=== PATIENT | female | born 1975 | race Caucasian/White ===

== ENCOUNTER 2017-09-11 08:29 | Day surgery (SDC) | payer OTHER ==
[2017-09-11] MEDS ORDERED: Propofol 10 mg/ml Inj (20 ML) ONE (13:38)
[2017-09-11] MEDS ORDERED: Lidocaine Hydrochloride 5 ML INJ ONE (13:38)
[2017-09-11 14:24] VITALS: TEMP 97.8
[2017-09-11 14:26] VITALS: O2SAT 100
[2017-09-11 15:30] VITALS: BP 103/64; PULSE 65; RESP 18
== END 2017-09-11 15:20 | disposition home or self-care (01) ==
LOC: C.ENDO 08:29
PROVIDERS: ATTEND Internal Medicine
DX: K29.80 Duodenitis without bleeding (principal); K29.50 Unspecified chronic gastritis without bleeding; B96.81 Helicobacter pylori [H. pylori] as the cause of diseases classified elsewhere; K44.9 Diaphragmatic hernia without obstruction or gangrene; Z87.19 Personal history of other diseases of the digestive system; R11.10 Vomiting, unspecified
CPT/HCPCS: 43239; 84703; 88305; J2704

== ENCOUNTER 2019-01-31 16:43 | Outpatient (CLI) | payer OTHER | END 2019-01-31 16:44 | disposition home or self-care (01) | LOC: C.MAMMO 16:43 | DX: Z12.31 Encounter for screening mammogram for malignant neoplasm of breast (principal) ==